=== PATIENT | male | born 1990 | race African-American/Black ===

== ENCOUNTER 2018-04-11 14:53 | Emergency (ER) | payer MEDICAID, OTHER ==
[~2018-04-11] VITALS: Ht 180.3 cm; Wt 68.0 kg
[2018-04-11 15:31] VITALS: BP 188/82
[2018-04-11] MEDS ORDERED: cefTRIAXone SODIUM 250 MG VL IM ONE (16:30)
[2018-04-11] MEDS ORDERED: AZITHROMYCIN 250 MG TAB PO ONE (16:30)
[2018-04-11 17:47] LABS: Urine Bacteria NONE SEEN /hpf (None Seen); Urine Blood TRACE /uL (Negative); Urine Mucus FEW (None Seen); Urine Specific Gravity 1.011 (1.001-1.035); Urine WBC 73 /hpf (0 - 3)
== END 2018-04-11 17:35 | disposition home or self-care (01) ==
LOC: ER 14:53
DX: A64 Unspecified sexually transmitted disease (principal)
CPT/HCPCS: 81001; 96372; 99283; J0696

== ENCOUNTER 2020-06-08 14:32 | Emergency (ER) | payer MEDICAID, OTHER ==
[~2020-06-08] VITALS: Ht 180.3 cm; Wt 74.8 kg
[2020-06-08 15:19] VITALS: BP 149/92
== END 2020-06-08 16:02 | disposition home or self-care (01) ==
LOC: ER 14:32
DX: S60.222A Contusion of left hand, initial encounter (principal); F17.210 Nicotine dependence, cigarettes, uncomplicated; W51.XXXA Accidental striking against or bumped into by another person, initial encounter; Y93.89 Activity, other specified; Y92.89 Other specified places as the place of occurrence of the external cause; Y99.8 Other external cause status
CPT/HCPCS: 73130